=== PATIENT | male | born 1950 | race American Indian/Alaskan Native ===

== ENCOUNTER 2019-01-26 08:17 | Outpatient (CLI) | payer MEDICARE, OTHER ==
[2019-02-01 21:44] LABS: ANA Screen, IFA Positive (Negative)
== END 2019-01-26 08:18 | disposition home or self-care (01) ==
LOC: LAB 08:17
PROVIDERS: ATTEND Specialist
DX: G62.9 Polyneuropathy, unspecified (principal); R79.89 Other specified abnormal findings of blood chemistry
CPT/HCPCS: 36415; 82607; 83036; 83921; 84443; 85652; 86038; 86225; 86334